=== PATIENT | female | born 1925 | race Caucasian/White ===

== ENCOUNTER 2016-09-24 08:07 | Observation (INO) | payer MEDICARE ==
[2016-09-24] MEDS ORDERED: DUONEB 0.5-3 MG/3 ml Neb IH ONE ×2 (08:13→08:32)
--- NOTE | 2016-09-24 08:23 | ERPHSYRPT ---
- History of Present Illness Source: patient Exam Limitations: no limitations Patient Subjective Stated Complaint: pt states at 0300 this morning she began feeling sob in her apartment. denies any recent cough. Triage Nursing Assessment: pt pink, warm, dry. lung sounds clear and equal. pt afebrile. pt breathing deep. Timing/Duration: hour(s) (5) Activities at Onset: none, sleep Severity of Dyspnea-Max: moderate Severity of Dyspnea-Current: moderate Possible Cause: occasional episodes Modifying Factors: Improves With: activity Associated Symptoms: cough Allergies/Adverse Reactions: No Known Drug Allergies Allergy (Verified 06/26/16 05:45) Home Medications: Levothyroxine Sodium 50 Mcg [Synthroid 50 Mcg] 50 mcg PO DAILY 08/18/15 [ History] Clonidine HCl 0.1 mg [Catapres 0.1 MG] 1 tab PO TID 05/20/16 [History] Diltiazem HCl 30 mg PO QID 05/20/16 [History] Metoprolol Tartrate 50 mg PO BID 05/20/16 [History] PANTOPRAZOLE 40 mg Tablet [Protonix 40MG Tablet] 40 mg PO DAILY 05/20/16 [ History] Simvastatin [Zocor] 1 tab PO DAILY 05/20/16 [History] Hx Tetanus, Diphtheria Vaccination/Date Given: Yes (up to date) Hx Influenza Vaccination/Date Given: Yes Hx Pneumococcal Vaccination/Date Given: Yes Immunizations Up to Date: Yes - Review of Systems Constitutional: No Symptoms Eyes: No Symptoms Ears, Nose, & Throat: No Symptoms Respiratory: Cough Cardiac: No Symptoms Abdominal/Gastrointestinal: No Symptoms Musculoskeletal: No Symptoms Skin: No Symptoms Neurological: No Symptoms Psychological: No Symptoms Endocrine: No Symptoms Hematologic/Lymphatic: No Symptoms Immunological/Allergic: No Symptoms - Past Medical History Pertinent Past Medical History: Yes Neurological History: No Pertinent History Cardiac History: Arrhythmia, High Cholesterol, Hypertension, Other Respiratory History: No Pertinent History Endocrine Medical History: No Pertinent History, Hypothyroidism Musculoskeletal History: No Pertinent History GI Medical History: No Pertinent History History: No Pertinent History Psycho-Social History: No Pertinent History Female Reproductive Disorders: No Pertinent History Other Medical History: ATRIAL FIBRILLATION - Past Surgical History Past Surgical History: Yes Neuro Surgical History: No Pertinent History Cardiac: No Pertinent History Respiratory: No Pertinent History Gastrointestinal: Appendectomy Musculoskeletal: No Pertinent History Female Surgical History: Hysterectomy Other Surgical History: "TUMMY SURGERY" - UNSURE WHAT FOR - Social History Smoking Status: Never smoker Exposure to second hand smoke: No Drug Use: none Patient Lives Alone: No - Nursing Vital Signs Nursing Vital Signs: Initial Vital Signs Temperature 97.3 F Temperature Source Oral Pulse Rate 94 Respiratory Rate 28 Blood Pressure 158/51 Pain Intensity 0 - Physical Exam General Appearance: moderate distress Eye Exam: PERRL/EOMI, eyes nml inspection Ears, Nose, Throat Exam: normal ENT inspection, normal pharynx Neck Exam: normal inspection, non-tender, supple, full range of motion Respiratory Exam: lungs clear Cardiovascular/Chest Exam: normal heart sounds, regular rate/rhythm Abdominal/Gastrointestinal Exam: soft, normal bowel sounds Extremity Exam: non-tender, normal range of motion, normal inspection Neurologic Exam: alert, oriented x 3, cooperative Skin Exam: normal color, warm SpO2 Interpretation: normal SpO2: 97 Oxygen Delivery: Room Air - Course Nursing assessment & vital signs reviewed: Yes EKG Interpreted by Me: RATE (98), Sinus Rhythm, NORMAL AXIS, NORMAL INTERVALS, Other (Anterior loss of R forces unchanged since ECG of 05.20.2016) - Radiology Exams Chest X-ray Interpretation: Discussed w/ radiologist (New cardiomegaly, vascular congestion, pulmonary edema and small bibasilar effusions with adjacent inf/ atelectasis faving cardiac decompensation. Superimposed pneumonia cannot be excluded.) Ordered Tests: Active Orders 24 hr Category Date Time Status Clinical Nutrition Manager STAT Care 09/24/16 08:13 Active Clean Catch Urine Specimen STAT Care 09/24/16 08:13 Active EKG-ER Only STAT Care 09/24/16 08:17 Active IV Insertion STAT Care 09/24/16 08:13 Active Oxygen-ED Only NASAL CANNULA 2 lpm Care 09/24/16 08:13 Active Pulse Oximetry (ED) STAT Care 09/24/16 08:17 Active CHEST 1 VIEW (PORTABLE) Stat Exams 09/24/16 08:14 Completed ARTERIAL BLOOD GASES Urgent Lab 09/24/16 08:40 Completed BLOOD CULTURE Stat Lab 09/24/16 08:13 Ordered CBC W DIFF Stat Lab 09/24/16 08:13 Ordered CMP Stat Lab 09/24/16 08:13 Ordered INFLUENZA A+B Stat Lab 09/24/16 08:13 Ordered MAGNESIUM Stat Lab 09/24/16 08:13 Ordered NT PRO BNP Stat Lab 09/24/16 08:13 Ordered PROTIME WITH INR Stat Lab 09/24/16 08:13 Ordered TROPONIN Stat Lab 09/24/16 08:13 Ordered UA Stat Lab 09/24/16 08:13 Ordered Respiratory Nebulizer STAT RT 09/24/16 08:16 Completed Medication Summary Discontinued Medications Generic Name Dose Route Start Last Admin Trade Name Garyq PRN Reason Stop Dose Admin Albuterol/Ipratropium 3 ml 09/24/16 08:13 09/24/16 08:34 Duoneb 0.5-3 Mg/3 Ml Neb IH 09/24/16 08:14 3 ml STAT ONE Administration Albuterol/Ipratropium Confirm 09/24/16 08:32 Duoneb 0.5-3 Mg/3 Ml Neb Administered 09/24/16 08:33 Dose 3 ml IH .STK-MED ONE Lab/Rad Data: Laboratory Results 09/24/16 Range/Units 08:40 Puncture Site LEFT RADIAL pCO2 27 L (35-45) mmHg pO2 119 H (75-100) mmHg Base Excess -5.9 L (-2.0-2.0) O2 Saturation 94.6 (94-100) g/dF ABG pH 7.42 (7.35-7.45) ABG HCO3 17.5 L (22-28) ABG O2 Sat (Measured) 98.9 (95-100) % Johann Test YES A-a Gradient 47 a/A Ratio 0.72 Hemoglobin 10.3 Carboxyhemoglobin 2.2 (0.0-6.9) % THgb Methemoglobin 2.0 H (1.4-1.5) % Potassium 4.6 (3.5-5.1) Temperature 37.0 C POC O2 Flow Rate 28 % - Progress Progress: improved Air Movement: good Blood Culture(s) Obtained: Yes Antibiotics given: Yes Discussed with : Laura Will see patient in: hospital (observation) Counseled pt/family regarding: lab results, diagnosis, need for follow-up, rad results - Departure Time of Disposition: 09:00 Departure Disposition: Observation Clinical Impression: Pulmonary edema cardiac cause CHF (congestive heart failure) Qualifiers: Congestive heart failure type: unspecified congestive heart failure type Congestive heart failure chronicity: acute Qualified Code(s): I50.9 - Heart failure, unspecified Pneumonia Qualifiers: Pneumonia type: due to unspecified organism Laterality: bilateral Lung location : lower lobe of lung Qualified Code(s): J18.9 - Pneumonia, unspecified organism Condition: Stable Critical Care Time: Yes Critical Care Time(excluding separately billable procedures): 75-104 minutes Instructions: Heart Failure
--- NOTE | 2016-09-24 08:31 | XRAY ---
Indication: Short of breath. Comparison: June 26, 2016 Portable chest demonstrates new cardiomegaly, vascular congestion, pulmonary edema, and small bibasilar effusions with adjacent lung infiltrates/atelectasis favoring cardiac decompensation. Superimposed pneumonia not excluded.
[2016-09-24 08:48] LABS: A-aADO2 47; ALLEN TEST OK? YES; ARTERIAL BLD GAS O2 SATURATION 98.9 % (95-100); ARTERIAL BLOOD GAS BASE EXCESS -5.9 (-2.0-2.0); ARTERIAL BLOOD GAS FIO2 28 %; ARTERIAL BLOOD GAS PO2 119 mmHg (75-100); ARTERIAL BLOOD GAS pH 7.42 (7.35-7.45)
[2016-09-24 08:57] LABS: Mean Cell Volume 83.2 fl (78-100); Mean Platelet Volume 9.8 fl (6-9.5); Platelet Count 329 K/mm3 (150-450); Red Blood Count 3.98 M/mm3 (4.1-5.4); Red Cell Distribution Width 15.9 % (11.5-14.0)
[2016-09-24] MEDS ORDERED: Lasix 40 MG/4 ML IV ONE (09:03)
[2016-09-24 09:05] LABS: Mean Corpuscular Hemoglobin 24.3 pg (26-32)
[2016-09-24] MEDS ORDERED: ROCEPHIN 1 Gm-D5w 50 ml Bag** 50 ML IV ONE (09:05)
[2016-09-24] MEDS ORDERED: Lasix 40 MG/4 ML ONE (09:05)
[2016-09-24 09:11] LABS: INR 1.13 (0.8-3.0); PROTIME 12.6 SECONDS (9.95-12.35)
[2016-09-24] MEDS ORDERED: ROCEPHIN 1 Gm-D5w 50 ml Bag** 50 ML IV SCH (09:15)
[2016-09-24] MEDS ORDERED: NITRO-BID 2% UD PACKETS TOP ONE (09:26)
[2016-09-24] MEDS ORDERED: NITRO-BID 2% UD PACKETS ONE (09:27)
[2016-09-24 09:28] LABS: ALBUMIN 3.1 g/dL (3.4-5.0); ANION GAP 18.4 MEQ/L (5-15); BILIRUBIN,TOTAL 0.3 mg/dL (0.2-1.0); Carbon Dioxide 18.8 mEq/L (21-32); MAGNESIUM 1.7 mg/dL (1.8-2.4); Potassium 4.5 mEq/L (3.5-5.1); TROPONIN 0.028 ng/ml (0.000-0.056); Total Protein 8.1 gm/dL (6.4-8.2)
[2016-09-24] MEDS ORDERED: MAG-OX 400 PO STA (09:40)
[2016-09-24] MEDS ORDERED: MAG-OX 400 ONE (09:42)
[2016-09-24] MEDS ORDERED: Lasix 40 MG/4 ML IV SCH (10:00)
[2016-09-24 10:42] LABS: Collection Type CATH
[2016-09-24 10:43] LABS: COMPLETE URINE MICROSCOPIC? YES
[2016-09-24 10:51] LABS: Bacteria MANY /HPF (NEGATIVE); Epithelial Cells MANY /HPF (FEW)
--- NOTE | 2016-09-24 15:45 | ECHO ---
DATE OF PROCEDURE: 09/24/2016 CLINICAL INFORMATION: Pulmonary edema. The M-mode, 2D and Doppler echocardiogram including color flow Doppler shows moderately severe decrease in left ventricular systolic function with an ejection fraction between 20 and 25%. The aortic valve opens well. There is mitral valve thickening. There is mild tricuspid regurgitation with a right ventricular systolic pressure being elevated 35 mm of Mercury. The aortic root is normal with a dimension of 3.1 cm. The left atrium is normal with dimension of 2.3 cm. The left ventricle was normal with a dimension of 5.3 cm. The septal wall thickness is increased at 1.2 cm. The left ventricular posterior wall thickness is increased at 1.8 cm. The right atrium is normal in size. The intra-atrial septum is intact. There is no pericardial effusion. The pulmonic valve is not well visualized. IMPRESSION: 1) MODERATELY SEVERE LEFT VENTRICULAR SYSTOLIC FUNCTION. 2) MODERATE ASYMMETRIC LEFT VENTRICULAR HYPERTROPHY. 3) MODERATE MITRAL REGURGITATION. ASSOCIATED MITRAL VALVE LEAFLET THICKENING. 4) MILD AORTIC REGURGITATION. 5) MILD TRICUSPID REGURGITATION ASSOCIATED WITH MILD PULMONARY HYPERTENSION. THERE IS NO PERICARDIAL EFFUSION.
[2016-09-24] MEDS: Lasix 40 MG/4 ML IV SCH (16:02)
[2016-09-24] MEDS: Lopressor 50 MG PO SCH (21:47)
[2016-09-25 05:32] LABS: Mean Cell Volume 80.8 fl (78-100); Mean Corpuscular Hemoglobin 24.5 pg (26-32); Mean Platelet Volume 9.9 fl (6-9.5); Platelet Count 327 K/mm3 (150-450); Red Blood Count 4.28 M/mm3 (4.1-5.4); Red Cell Distribution Width 15.6 % (11.5-14.0); White Blood Count 8.2 K/mm3 (4.0-10.5)
[2016-09-25] MEDS: Lasix 40 MG/4 ML IV SCH ×2 (09:23→16:00)
[2016-09-25] MEDS: Lopressor 50 MG PO SCH ×2 (09:23→21:41)
[2016-09-25] MEDS: ROCEPHIN 1 Gm-D5w 50 ml Bag** 50 ML IV SCH (09:25)
[2016-09-25 09:28] LABS: ANION GAP 16.7 MEQ/L (5-15); Carbon Dioxide 25.8 mEq/L (21-32); Potassium 4.4 mEq/L (3.5-5.1)
[2016-09-25] MEDS ORDERED: Cardizem CD 180 MG PO SCH (10:00)
--- NOTE | 2016-09-25 10:59 | PCM.HP ---
History of Present Illness - Chief Complaint Chief Complaint: Shortness of Breath History of Present Illness: is a 89 year old female patient, formerly of Dr. Jayna Pathak, who started having SOB acutely at 3 am yesterday morning. She was having chest pressure as well. Was transported to the ER via ambulance where her BNP was found to be 25,000. She was put on O2 per NC and given 80mg IV lasix. This morning despite an elevated BNP she is feeling much better, no longer on oxygen and not short of breath at rest (has not been up walking). Echocardiogram done yesterday with EF 20-25%. She started seeing Dr. Mitchell this summer when she had an episode she describes as "my ribs touching my heart" for which she was admitted to [facility] and had surgery. A few weeks after that she was re-admitted with "a hole in my stomach" for further surgery. Her kidneys failed at that time although she did not have to be on dialysis. She continues to see Dr. Kim. She has a very remote hx (age 31) of radiation to the thyroid; 1 mo ago she was told she could stop taking her thyroid medicine. Recently she saw Dr. Kim and he changed her diltiazem from QID dosing to extended release daily dosing and also discontinued her clonidine. - Review of Systems Eyes: Other (superficial cysts lateral to each eye, chronic) Respiratory: Short Of Breath Cardiac: Palpitations (chronically; unsure if she had any yesterday), Other ( chest pressure) Psychological: Anxiety (with episode yesterday), No Depression, No Suicidal Ideations All Other Systems: Reviewed and Negative Medications & Allergies Home Medications: Home Medication List Simvastatin [Zocor] 1 tab PO HS 05/20/16 [History Confirmed 09/24/16] Diltiazem HCl [Cartia Xt] 180 mg PO DAILY 09/24/16 [History Confirmed 09/24/16] Metoprolol Tartrate 50 mg PO BID 09/24/16 [History Confirmed 09/24/16] Allergies/Adverse Reactions: Allergies Allergy/AdvReac Type Severity Reaction Status Date / Time No Known Drug Allergies Allergy Verified 09/24/16 09:44 - Past Medical History Past Medical History: Yes Neurological History: No Pertinent History ENT History: Other Cardiac History: Arrhythmia, High Cholesterol, Hypertension, Other Respiratory History: No Pertinent History Endocrine Medical History: No Pertinent History, Hypothyroidism Musculoskelatal History: No Pertinent History GI Medical History: No Pertinent History History: No Pertinent History Pyscho-Social History: No Pertinent History Reproductive Disorders: No Pertinent History Comment: a-fib - Female History Are you now?: No - Past Surgical History Past Surgical History: Yes Neuro Surgical History: No Pertinent History Cardiac History: No Pertinent History Respiratory Surgery: No Pertinent History GI Surgical History: Appendectomy Musculskeletal Surgical Hx: No Pertinent History Female Surgical History: Hysterectomy Other Surgical History: "TUMMY SURGERY" - UNSURE WHAT FOR - Social History Smoking Status: Never smoker Exposure to second hand smoke: No Alcohol: None Drug Use: none - Physical Exam Vital Signs: Vital Signs - 24 hr Temp Pulse Resp BP Pulse Ox 09/25/16 10:34 82 18 119/69 96 09/25/16 08:00 98 F 83 18 115/55 96 09/25/16 07:07 74 24 95 09/25/16 04:00 98.3 F 71 123/71 95 09/25/16 00:00 98.0 F 70 23 124/52 96 09/24/16 21:14 94 L 09/24/16 21:13 95 09/24/16 20:00 98.6 F 81 20 124/64 96 09/24/16 19:58 98 09/24/16 15:53 98.8 F 78 22 128/64 98 09/24/16 11:56 84 21 131/81 98 09/24/16 10:58 96 H 18 98 Oxygen-Last 24 hours O2 Percentage 2 Liters = 28% General Appearance: no apparent distress Neurologic Exam: alert, oriented x 3, cooperative Eye Exam: PERRL/EOMI, other (superficial cysts lateral to eyes bilat) Ears, Nose, Throat Exam: pharynx normal, moist mucous membranes Neck Exam: normal inspection Respiratory Exam: normal breath sounds, lungs clear, No wheezing, No stridor, No pleural rub Cardiovascular Exam: regular rate/rhythm, normal heart sounds, No murmur Gastrointestinal/Abdomen Exam: soft, normal bowel sounds, No tenderness, No distention Extremity Exam: No pedal edema, No swelling Skin Exam: normal color, warm, dry, No rash Results - Labs Lab/Micro Results: Lab Results-Last 24 Hours 09/24/16 09/24/1617 Range/Units 12:40 17:05 17:05 WBC (4.0-10.5) K/mm3 RBC (4.1-5.4) M/mm3 Hgb (12.0-16.0) gm/dl Hct (35-47) % MCV (78-100) fl MCH (26-32) pg MCHC (32-36) g/dl RDW (11.5-14.0) % Plt Count (150-450) K/mm3 MPV (6-9.5) fl Sodium (136-145) mEq/L Potassium (3.5-5.1) mEq/L Chloride (98-107) mEq/L Carbon Dioxide (21-32) mEq/L Anion Gap (5-15) MEQ/L BUN (9-20) mg/dL Creatinine (0.55-1.30) mg/dl Estimated GFR ML/MIN Glucose (70-110) MG/DL Calcium (8.5-10.1) mg/dL Troponin I 0.038 0.046 (0.000-0.056) ng/ml NT-Pro-B Natriuret Pep > 63274 H (0-450) pg/ml 09/24/16 09/24/16 09/25/16 Range/Units 18:00 20:43 05:15 WBC (4.0-10.5) K/mm3 RBC (4.1-5.4) M/mm3 Hgb (12.0-16.0) gm/dl Hct (35-47) % MCV (78-100) fl MCH (26-32) pg MCHC (32-36) g/dl RDW (11.5-14.0) % Plt Count (150-450) K/mm3 MPV (6-9.5) fl Sodium 140 (136-145) mEq/L Potassium 4.3 4.4 (3.5-5.1) mEq/L Chloride 102 (98-107) mEq/L Carbon Dioxide 25.8 (21-32) mEq/L Anion Gap 16.7 H (5-15) MEQ/L BUN 28 H (9-20) mg/dL Creatinine 1.70 H (0.55-1.30) mg/dl Estimated GFR 30 ML/MIN Glucose 111 H (70-110) MG/DL Calcium 7.9 L (8.5-10.1) mg/dL Troponin I 0.046 (0.000-0.056) ng/ml NT-Pro-B Natriuret Pep 79651 H (0-450) pg/ml 09/25/16 Range/Units 05:27 WBC 8.2 (4.0-10.5) K/mm3 RBC 4.28 (4.1-5.4) M/mm3 Hgb 10.5 L (12.0-16.0) gm/dl Hct 34.6 L (35-47) % MCV 80.8 (78-100) fl MCH 24.5 L (26-32) pg MCHC 30.3 L (32-36) g/dl RDW 15.6 H (11.5-14.0) % Plt Count 327 (150-450) K/mm3 MPV 9.9 H (6-9.5) fl Sodium (136-145) mEq/L Potassium (3.5-5.1) mEq/L Chloride (98-107) mEq/L Carbon Dioxide (21-32) mEq/L Anion Gap (5-15) MEQ/L BUN (9-20) mg/dL Creatinine (0.55-1.30) mg/dl Estimated GFR ML/MIN Glucose (70-110) MG/DL Calcium (8.5-10.1) mg/dL Troponin I (0.000-0.056) ng/ml NT-Pro-B Natriuret Pep (0-450) pg/ml - Other Procedures and Tests Respiratory Therapy 09/24/16 10:26 RT Screen per Nursing Assess ONCE 09/24/16 11:36 Oxygen NASAL CANNULA 2 lpm 09/26/16 05:00 EKG ONCE 09/27/16 05:00 EKG ONCE Assessment/Plan (1) CHF (congestive heart failure) Current Visit: Yes Status: Acute Qualifiers: Congestive heart failure type: unspecified congestive heart failure type Congestive heart failure chronicity: acute Qualified Code(s): I50.9 - Heart failure, unspecified Assessment & Plan: with EF 20-25% on echo. Dr. Mitchell has been consulted, thank you! If pt needs a procedure she is in favor of that. Diuresing with 80mg IV lasix daily - she did have 3300 mL urine out. Code(s): I50.9 - HEART FAILURE, UNSPECIFIED (2) Elevated troponin Current Visit: No Status: Acute Assessment & Plan: Did not get above normal range. Code(s): R79.89 - OTHER SPECIFIED ABNORMAL FINDINGS OF BLOOD CHEMISTRY (3) HTN (hypertension) Current Visit: No Status: Chronic Assessment & Plan: BP very stable here, 110s-145 systolic. Code(s): I10 - ESSENTIAL (PRIMARY) HYPERTENSION (4) Renal failure Current Visit: Yes Status: Chronic Assessment & Plan: Some decrease in kidney function, expectedly, wiht the diuresis.
[2016-09-25] MEDS: SYNTHROID 50 MCG PO SCH (14:43)
[2016-09-25] MEDS: Zestril 5 MG PO SCH (17:06)
[2016-09-25] MEDS ORDERED: Zocor 10MG PO SCH (22:00)
[2016-09-26 06:10] LABS: ANION GAP 15.6 MEQ/L (5-15); Potassium 3.4 mEq/L (3.5-5.1)
--- NOTE | 2016-09-26 07:42 | CONS ---
CONSULT DATE: 09/25/2016 BRIEF HISTORY: This is an 89 year-old female who was seen because of shortness of breath. The patient was apparently doing well until 0200 hours in the morning yesterday when she could not sleep and was getting increasingly short of breath. She eventually ended up in the emergency room at [facility]. Initial evaluation showed that she was in stu congestive heart failure. Her BNP was markedly elevated. She did have some chest tightness but this was somewhat brief. She was admitted to the ICU and was given some IV diuretics and she appears to be comfortable. An echocardiogram was done which showed a left ventricular ejection fraction range between 20 to 25%. Interestingly about seven months ago her left ventricular ejection fraction was between 50 and 55%. The patient has never had myocardial infarction or previous heart failure. She states that she just had some mild weight gain. She did not have any dietary indiscretion as far as intake is concerned. CARDIAC RISK FACTORS: Negative for diabetes. Positive for hypertension. She does not smoke. No known hyperlipidemia. REVIEW OF SYSTEMS: HEAD STOCK TRANSFER CLERK: No history of stroke or seizure. RESPIRATORY: No chronic cough, no hemoptysis but she has had pneumonia in the past. GI: She has a history of hiatal hernia for which she underwent surgical procedure. No recent nausea, no vomiting. : Negative for dysuria or hematuria. PERIPHERAL VASCULAR: Negative for deep venous thrombosis or claudication. SKIN: No active dermatological problems. PAST SURGICAL HISTORY: Hysterectomy. Partial gastrectomy for perforated viscus and also repair of hiatal hernia. CURRENT MEDICATIONS: Cardizem 180 daily, furosemide twice a day, metoprolol 50 mg twice a day, levothyroxine 50 mcg a day, Simvastatin 10 mg a day. SOCIAL HISTORY: She is a . No significant alcohol intake. PHYSICAL EXAMINATION: Her blood pressure is 115/59 with a heart rate of 74, respirations about 18. GENERAL: The patient is an elderly female who is alert, oriented, conversant, does not appear to be in any form of distress. HEENT: She has got a mass in her periorbital area. NECK: No significant JVD. No carotid bruit. CHEST: The breath sounds are diminished bilaterally. No rhonchi. CARDIAC: Heart tones are distant. The rhythm is regular. There is a grade 2/6 mid systolic murmur. No definite S2 gallop. ABDOMEN: Soft with normal bowel sounds. EXTREMITIES: Trace edema with decreased distal pulses. 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 The troponin I is 0.046. The BNP was more than 35,000. Serum electrolytes were normal with creatinine of 1.7. IMPRESSION: In essence the patient presented with: 1) Acute shortness of breath which is secondary to cardiac decompensation, this may be secondary to an acute myocarditis resulting in significant left ventricular dysfunction. Will discontinue Cardizem and place on beta blockers and will try her on a small dose of PAMELLA inhibitors. 2) Paroxysmal atrial fibrillation currently in normal sinus rhythm. Will consider anticoagulation if she goes into atrial fibrillation. 3) Hypertension.
--- NOTE | 2016-09-26 08:36 | PCM.DS ---
Discharge Summary Date of Admission: 09/24/16 10:12 Admitting Physician: HINA PAYNE Consults: Consults on Case 09/25/16 10:38 Consult Cardiology ROUTINE Primary Care Provider: HINA PAYNE Allergies Allergies No Known Drug Allergies Allergy (Verified 09/24/16 09:44) Hospital Summary - Hospital Course Hospital Course: Pt admitted through the ER with acute SOB. Found to have elevated BNP > 25, 000. CXR with effusions, could not rule out pna so treated with rocephin as well. The morning after admission she was feeling much better. Echo showed EF 20-25% and her project manager, Dr. Mitchell, was consulted. Pt notes that he indicated there may have been a virus involved with causing the heart failure; he put her on 2.5mg po lisinopril daily and indicated she may be able to d/c home today. She has been diuresing very well on 40mg lasix IV BID. Not previously on lasix at home. Will go home on lisinopril, lasix 40mg po daily, and potassium 10 mEq daily. Her renal function has been decreased, this has been an issue for her since she was ill in March 2016 (sees Dr. Kim). Her eGFR was 34 on admission and is 29 today. Recheck BMP in 4-5 days. F/u with Dr. Kim in the next 2-3 weeks. - Vitals & Intake/Output Vital Signs: Vital Signs Temperature 98.2 F 09/26/16 07:50 Pulse Rate 72 09/26/16 07:50 Respiratory Rate 22 09/26/16 07:50 Blood Pressure 109/53 09/26/16 07:50 O2 Sat by Pulse Oximetry 97 09/26/16 07:50 Oxygen-Last Documented O2 Percentage 2 Liters = 28% Intake & Output: Intake & Output 09/23/16 09/24/16 09/25/16 09/26/16 11:59 11:59 11:59 11:59 Intake Total 865 1300 Output Total 3300 2950 Balance -2435 -1650 Weight 55 kg 52.9 kg 54.975 kg - Lab Result Diagrams: 09/25/16 05:27 09/26/16 05:15 Lab Results-Last 24 Hrs: Lab Results-Last 24 Hours 01/01/0609/25/16 09/26/16 Range/Units 05:00 05:15 05:15 Sodium 140 141 (136-145) mEq/L Potassium 4.4 3.4 L (3.5-5.1) mEq/L Chloride 102 103 (98-107) mEq/L Carbon Dioxide 25.8 26.0 (21-32) mEq/L Anion Gap 16.7 H 15.6 H (5-15) MEQ/L BUN 28 H 36 H (9-20) mg/dL Creatinine 1.70 H 1.76 H (0.55-1.30) mg/dl Estimated GFR 30 29 ML/MIN Glucose 111 H 113 H (70-110) MG/DL Calcium 7.9 L 7.5 L (8.5-10.1) mg/dL NT-Pro-B Natriuret Pep 27471 H 73688 H (0-450) pg/ml Free T4 0.61 L (0.76-1.46) ng/dl TSH 3rd Generation 0.054 L (0.358-3.740) mIU/L - Procedures and Test Procedures and Tests throughout Hospitalization: Therapy Orders & Screens 09/24/16 10:26 RT Screen per Nursing Assess ONCE Comment: Protocol Order Physician Instructions: Greater than 3 points order RT Admission Screen Reason For Exam: Triggered on Admission Diagnosis: Shortness of Breath Diagnosis: Shortness of Breath Pneumonia: Yes Home O2: No Asthma: No CHF: Yes Home CPAP/BIPAP: No Home Nebs/MDI: No Total Points: 6 09/24/16 11:36 Oxygen NASAL CANNULA 2 lpm Comment: Diagnosis: Shortness of Breath 09/24/16 16:00 EKG [id number] Comment: Diagnosis: Shortness of Breath 09/25/16 05:00 EKG ONCE Comment: Diagnosis: Shortness of Breath 09/26/16 05:00 EKG ONCE Comment: Diagnosis: Shortness of Breath 09/27/16 05:00 EKG ONCE Comment: Diagnosis: Shortness of Breath Discharge Exam General Appearance: no apparent distress Neurologic Exam: alert, oriented x 3, cooperative Skin Exam: normal color, warm, dry Respiratory Exam: normal breath sounds, lungs clear, No crackles/rales, No rhonchi Final Diagnosis/Problem List - Final Discharge Diagnosis/Problem (1) CHF (congestive heart failure) Current Visit: Yes Status: Acute (2) HTN (hypertension) Current Visit: No Status: Chronic (3) Renal failure Current Visit: Yes Status: Chronic - Discharge Disposition: Home, Self-Care Condition: Stable Medications: Home Medications Simvastatin [Zocor] 1 tab PO HS 05/20/16 [Confirmed 09/24/16] Diltiazem HCl [Cartia Xt] 180 mg PO DAILY 09/24/16 [Confirmed 09/24/16] Metoprolol Tartrate 50 mg PO BID 09/24/16 [Confirmed 09/24/16] Active Inpatient Medications Furosemide (Lasix 40 Mg/4 Ml) 40 mg IV BID DIURETIC VLADIMIR Stop: 10/24/16 16:59 Last Admin: 09/25/16 16:00 Dose: 40 mg Ceftriaxone Sodium/Dextrose (Rocephin 1 Gm-D5w 50 Ml Bag) 50 mls @ 100 mls/ hr IV Q24H10 VLADIMIR Stop: 10/25/16 09:59 Last Admin: 09/25/16 09:25 Dose: 100 mls/hr Levothyroxine Sodium (Synthroid 50 Mcg) 50 mcg PO QAM VLADIMIR Stop: 10/25/16 14:59 Last Admin: 09/25/16 14:43 Dose: 50 mcg Lisinopril (Zestril 5 Mg) 2.5 mg PO DAILY [facility] Stop: 10/25/16 16:59 Last Admin: 09/25/16 17:06 Dose: 2.5 mg Metoprolol Tartrate (Lopressor 50 Mg) 50 mg PO BID [facility] Stop: 10/24/16 21:59 Last Admin: 09/25/16 21:41 Dose: 50 mg Simvastatin (Zocor 10mg) 10 mg PO HS [facility] Stop: 10/25/16 21:59 Last Admin: 09/25/16 21:41 Dose: 10 mg Instructions: Heart Failure Additional Instructions: [facility] WILL FOLLOW YOU AT DISCHARGE. THEY WILL CALL THE NEXT DAY TO ARRANGE YOUR FIRST VISIT. YOU MAY REACH THEM AT Follow up with: MARIA PALENCIA [ACTIVE STAFF] -
[2016-09-26] MEDS: Zestril 5 MG PO SCH (09:26)
[2016-09-26] MEDS: Lopressor 50 MG PO SCH (09:28)
[2016-09-26] MEDS: SYNTHROID 50 MCG PO SCH (09:28)
[2016-09-26] MEDS: Lasix 40 MG/4 ML IV SCH ×2 (09:29→16:08)
[2016-09-26] MEDS: ROCEPHIN 1 Gm-D5w 50 ml Bag** 50 ML IV SCH (09:29)
[2016-09-26] MEDS ORDERED: SYNTHROID 50 MCG PO SCH (10:00)
[2016-09-26] MEDS ORDERED: Klor Con 10 MEQ PO SCH (11:15)
--- NOTE | 2016-09-26 14:44 | PCM.DS ---
Discharge Summary Date of Admission: 09/24/16 10:12 Admitting Physician: HINA PAYNE Consults: Consults on Case 09/25/16 10:38 Consult Cardiology ROUTINE Primary Care Provider: HINA PAYNE Allergies Allergies No Known Drug Allergies Allergy (Verified 09/24/16 09:44) Hospital Summary - Vitals & Intake/Output Vital Signs: Vital Signs Temperature 98.2 F 09/26/16 12:00 Pulse Rate 72 09/26/16 12:00 Respiratory Rate 22 09/26/16 12:00 Blood Pressure 109/53 09/26/16 12:00 O2 Sat by Pulse Oximetry 97 09/26/16 12:00 Oxygen-Last Documented O2 Percentage 2 Liters = 28% Intake & Output: Intake & Output 09/24/16 09/25/16 09/26/16 09/27/16 11:59 11:59 11:59 11:59 Intake Total 865 1300 Output Total 3300 2950 Balance -2435 -1650 Weight 55 kg 52.9 kg 54.975 kg - Lab Result Diagrams: 09/25/16 05:27 09/26/16 05:15 Lab Results-Last 24 Hrs: Lab Results-Last 24 Hours 09/25/16 09/26/16 Range/Units 05:00 05:15 Sodium 141 (136-145) mEq/L Potassium 3.4 L (3.5-5.1) mEq/L Chloride 103 (98-107) mEq/L Carbon Dioxide 26.0 (21-32) mEq/L Anion Gap 15.6 H (5-15) MEQ/L BUN 36 H (9-20) mg/dL Creatinine 1.76 H (0.55-1.30) mg/dl Estimated GFR 29 ML/MIN Glucose 113 H (70-110) MG/DL Calcium 7.5 L (8.5-10.1) mg/dL NT-Pro-B Natriuret Pep 17947 H (0-450) pg/ml T3 (MI) 130 (80-200) ng/dL Micro Results-Entire Visit: Microbiology 09/24/16 11:09 Urine Culture - Final Urine, Catheterized NO GROWTH - Procedures and Test Procedures and Tests throughout Hospitalization: Therapy Orders & Screens 09/24/16 10:26 RT Screen per Nursing Assess ONCE Comment: Protocol Order Physician Instructions: Greater than 3 points order RT Admission Screen Reason For Exam: Triggered on Admission Diagnosis: Shortness of Breath Diagnosis: Shortness of Breath Pneumonia: Yes Home O2: No Asthma: No CHF: Yes Home CPAP/BIPAP: No Home Nebs/MDI: No Total Points: 6 09/24/16 11:36 Oxygen NASAL CANNULA 2 lpm Comment: Diagnosis: Shortness of Breath 09/24/16 16:00 EKG [id number] Comment: Diagnosis: Shortness of Breath 09/25/16 05:00 EKG ONCE Comment: Diagnosis: Shortness of Breath 09/26/16 05:00 EKG ONCE Comment: Diagnosis: Shortness of Breath 09/27/16 05:00 EKG ONCE Comment: Diagnosis: Shortness of Breath Final Diagnosis/Problem List - Final Discharge Diagnosis/Problem (1) CHF (congestive heart failure) Current Visit: Yes Status: Acute (2) HTN (hypertension) Current Visit: No Status: Chronic (3) Renal failure Current Visit: Yes Status: Chronic - Discharge Disposition: Home Health @ [facility] Condition: Stable Prescriptions: Amoxicillin 875 mg PO BID #14 tablet Potassium Chloride 10 Meq Tab* [Klor Con 10 MEQ] 10 meq PO DAILY #30 tab Furosemide 20 mg [Lasix 20 mg] 20 mg PO DAILY #30 tablet Levothyroxine Sodium 50 Mcg [Synthroid 50 Mcg] 50 mcg PO QAM #30 tablet Lisinopril 5 mg [Zestril 5 MG] 2.5 mg PO DAILY #30 tablet Medications: Home Medications Simvastatin [Zocor] 1 tab PO HS 05/20/16 [Confirmed 09/24/16] Diltiazem HCl [Cartia Xt] 180 mg PO DAILY 09/24/16 [Confirmed 09/24/16] Metoprolol Tartrate 50 mg PO BID 09/24/16 [Confirmed 09/24/16] Active Inpatient Medications Furosemide (Lasix 40 Mg/4 Ml) 40 mg IV BID DIURETIC VLADIMIR Stop: 10/24/16 16:59 Last Admin: 09/26/16 09:29 Dose: 40 mg Ceftriaxone Sodium/Dextrose (Rocephin 1 Gm-D5w 50 Ml Bag) 50 mls @ 100 mls/ hr IV Q24H10 VLADIMIR Stop: 10/25/16 09:59 Last Admin: 09/26/16 09:29 Dose: 100 mls/hr Levothyroxine Sodium (Synthroid 50 Mcg) 50 mcg PO QAM [facility] Stop: 10/25/16 14:59 Last Admin: 09/26/16 09:28 Dose: 50 mcg Lisinopril (Zestril 5 Mg) 2.5 mg PO DAILY VLADIMIR Stop: 10/25/16 16:59 Last Admin: 09/26/16 09:26 Dose: 2.5 mg Metoprolol Tartrate (Lopressor 50 Mg) 50 mg PO BID [facility] Stop: 10/24/16 21:59 Last Admin: 09/26/16 09:28 Dose: 50 mg Potassium Chloride (Klor Con 10 Meq) 10 meq PO DAILY [facility] Stop: 10/26/16 11:14 Last Admin: 09/26/16 11:48 Dose: 10 meq Simvastatin (Zocor 10mg) 10 mg PO HS [facility] Stop: 10/25/16 21:59 Last Admin: 09/25/16 21:41 Dose: 10 mg Instructions: Heart Failure Additional Instructions: [facility] WILL FOLLOW YOU AT DISCHARGE. THEY WILL CALL THE NEXT DAY TO ARRANGE YOUR FIRST VISIT. YOU MAY REACH THEM AT Follow up with: MARIA PALENCIA [ACTIVE STAFF] - HINA PAYNE [Primary Care Provider] - 10/01/16 3:45 pm
[2016-09-26 14:51] VITALS: BP 97/52; PULSE 70; O2SAT 95
== END 2016-09-26 16:29 | disposition home health service (06) ==
LOC: ED 08:07 → ICU 10:12 → MED SURG 09-26 11:20
PROVIDERS: ADMIT Family Medicine; ATTEND Family Medicine
DX: I50.9 Heart failure, unspecified (principal); I10 Essential (primary) hypertension; N19 Unspecified kidney failure
CPT/HCPCS: 36000; 36415; 36600; 51702; 71010; 80048; 80053; 81000; 82375; 82803; 83735; 83880; 84132; 84439; 84443; 84480; 84484; 85025; 85027; 85610; 87040; 87086; 87400; 93005; 93041; 93268; 93306; 94640; 94760; 94762; 96365; 96374; 99285; G0378; J0696; J1940